=== PATIENT | male | born 1960 | race Caucasian/White ===

== ENCOUNTER 2022-06-28 09:02 | Outpatient (CLI) | payer OTHER, SELFPAY ==
[2022-06-28 09:39] LABS: Hemoglobin A1C* 6.9 % (0-5.6)
[2022-06-28 15:02] LABS: Basophils Absolute Auto 0.07 K/uL (0.00-0.30); Basophils Percent Auto 1.2 % (0.0-3.0); Eosinophils Absolute Auto 0.07 K/uL (0.00-0.50); Eosinophils Percent Auto 1.2 % (0.0-7.0); Hematocrit 46.8 % (37.0-53.0); Hemoglobin* 16.2 gm/dL (13.5-17.5); Immature Granulocytes Abs Auto 0.01 K/uL (0.00-0.30); Immature Granulocytes Pct Auto 0.2 %; Lymphocytes Percent Auto 22.9 % (20-44); Mean Corpuscular HGB Conc 35 gm/dL (32-36); Mean Corpuscular Hemoglobin 31 pg (26-34); Mean Corpuscular Volume 89 fL (80-100); Monocytes Percent Auto 14.6 % (0.0-11.0); Neutrophils Absolute Auto 3.39 K/uL (1.7-7.0); Neutrophils Percent Auto 59.9 % (42.0-72.0); Platelet Count* 275 K/uL (140-440); RDW Coefficient of Variation % 11.6 % (11.5-15.5); Red Blood Count 5.29 m/uL (4.30-5.90); White Blood Count* 5.67 K/uL (4.50-11.00)
[2022-06-28 15:08] LABS: Slide Review Reflex No
[2022-06-28 15:13] LABS: Albumin* 4.7 g/dL (3.3-5.0); Chloride* 103 mmol/L (96-114)
[2022-06-28 15:15] LABS: Cholesterol* 118 mg/dL (90-199); Creatinine* 0.8 mg/dL (0.5-1.5); Estimated Glomerular Filt Rate 101 ml/min
[2022-06-28 15:16] LABS: Alanine Aminotransferase* 35 U/L (4-50); Alkaline Phosphatase* 82 U/L (40-150); Aspartate Amino Transferase* 33 U/L (12-35); Bilirubin Total* 1.2 mg/dL (0.1-1.5); Blood Urea Nitrogen* 25 mg/dL (7-30); Calcium* 9.9 mg/dL (8.4-10.6); Carbon Dioxide* 28 mmol/L (20-32); Glucose* 136 mg/dL (60-115); Total Protein* 7.2 g/dL (6.0-8.3); Triglycerides* 229 mg/dL (40-149)
[2022-06-28 15:17] LABS: HDL Cholesterol* 33 mg/dL (>=40); LDL Cholesterol Calculated 39 mg/dL (<100)
[2022-06-28 15:19] LABS: Potassium* 4.9 mmol/L (3.6-5.1); Sodium* 139 mmol/L (135-149)
[2022-06-28 15:41] LABS: PSA Screen* 1.23 ng/mL (0.10-4.00)
[2022-06-28 16:30] LABS: Creatinine Urine 190.2 mg/dL
[2022-06-28 16:43] LABS: Microalbumin Creatinine Ratio 10 mg/g (0-30); Microalbumin Urine 2 mg/dL
== END 2022-06-28 09:03 | disposition home or self-care (01) ==
PROVIDERS: PCP Nurse Practitioner Family; Visit Provider Nurse Practitioner Family
DX: Z00.00 Encounter for general adult medical examination without abnormal findings (principal); E11.9 Type 2 diabetes mellitus without complications; E78.5 Hyperlipidemia, unspecified; Z12.5 Encounter for screening for malignant neoplasm of prostate; Z13.0 Encounter for screening for diseases of the blood and blood-forming organs and certain disorders involving the immune mechanism; Z51.81 Encounter for therapeutic drug level monitoring
CPT/HCPCS: 80053; 80061; 82043; 82570; 83036; 84153; 85025

== ENCOUNTER 2023-07-30 08:28 | Outpatient (CLI) | payer BC, SELFPAY | END 2023-07-30 08:29 | disposition home or self-care (01) | PROVIDERS: PCP Nurse Practitioner Family; Visit Provider Nurse Practitioner Family | DX: E78.5 Hyperlipidemia, unspecified (principal); E11.9 Type 2 diabetes mellitus without complications; I10 Essential (primary) hypertension; Z12.5 Encounter for screening for malignant neoplasm of prostate | CPT/HCPCS: 80053; 80061; 82043; 82570; 84443; G0103 ==

== ENCOUNTER 2024-06-22 07:03 | Outpatient (CLI) | payer BC, SELFPAY ==
--- NOTE | 2024-06-22 07:15 | MR_ITS ---
[address] [address] Phone:?[phone] Fax:?[phone] Referring Physician Information: David Grande M.D. [address] [facility] [address] Phone:?[phone] Fax:?[phone] Patient:Jay Stout D.O.B:?1960 Sex:?Male Phone:?[phone] [facility] MRN:?[id number] Exam Date:?06/22/2024 EXAM: MRI of the LEFT SHOULDER, without contrast CLINICAL INFORMATION: Male, 64 years old, with left shoulder pain. INDICATION: Evaluate for osteoarthritis or rotator cuff tear. PRIOR SURGERY: None reported. PLAIN FILMS: Shoulder radiograph dated 06/15/2024. COMPARISONS: Left shoulder MRI dated 05/24/2016. TECHNICAL INFORMATION: Using a 1.5T MR scanner and a localizing surface coil: coronal obliques: PD, T2, STIR sagittal obliques: PD, T2 axials: PD, T2 SEDATION: None CONTRAST: None FINDINGS: Bones: Proximal humerus: No fracture or marrow edema/pathology. No humeral Hill-Sachs or reverse Hill-Sachs lesion/impaction or contusion. Glenoid: No fracture or marrow edema/pathology. No osseous Bankart lesion. Rotator cuff and muscles/tendons: Supraspinatus: No tendinopathy, tear or atrophy. Infraspinatus: No tendinopathy, tear or atrophy. Teres minor: No tendinopathy, tear or atrophy. Subscapularis: Mild tendinopathy of the superior distal subscapularis, without tendon tear or muscle atrophy. Deltoid: No strain or atrophy. Coracoacromial arch: Acromion morphology: The acromion has type II morphology. No discrete subacromial osseous spur or os acromiale. Acromiohumeral space: The acromiohumeral space measures 5.2 mm at its narrowest point (osseous distance). Coracohumeral space: The coracohumeral space is within normal limits. Acromioclavicular joint: Joint: Mild-moderate AC joint arthropathy, which effaces the underlying supraspinatus (coronal T2 series 7 image 12 and sagittal T2 series 9 image 14). Ligaments: Coracoclavicular ligaments are intact. Bursae: Subacromial-subdeltoid: No convincing subacromial bursal thickening/bursitis. Subcoracoid: No convincing subcoracoid bursal thickening/bursitis. Biceps tendon: The long head of the biceps tendon is present within the bicipital groove. The intra-articular and extra-articular segments are intact without tendinosis, tenosynovitis, or displacement. Glenohumeral joint: Effusion/cyst: Small glenohumeral joint effusion. Articular cartilage: Humeral head: Moderate-marked thinning of the humeral head articular cartilage, with moderate inferomedial marginal osteophytosis. Glenoid: Moderate-marked thinning of the glenoid articular cartilage, with mild/moderate anterior and posterior marginal osteophytosis. Loose bodies: No discrete intra-articular body within the joint. Labrum:?Circumferential degeneration and tearing of the labrum, which is of doubtful clinical significance. Inferior glenohumeral ligament/axillary pouch:?Intact. The axillary pouch is normal in thickness and signal. No evidence of adhesive capsulitis or capsular injury. IMPRESSION: 1. Moderate-advanced osteoarthritis of the glenohumeral joint with a small joint effusion. 2. Mild subscapularis tendinopathy, without tear. 3. Mild narrowing of the acromiohumeral space with mild-moderate AC joint arthropathy, which effaces the underlying cervicitis. However, there is no subacromial-subdeltoid bursitis. 4. Circumferential degeneration and tearing of the labrum, which is of doubtful clinical significance. 5. No tendinopathy, displacement, or tear of the biceps long head tendon. BC Electronically signed on 06/22/2024 11:11:00 AM by Malcolm Alberto M.D.
== END 2024-06-22 07:04 | disposition home or self-care (01) ==
LOC: MRI 07:04
PROVIDERS: PCP Nurse Practitioner Family; Visit Provider Orthopaedic Surgery
DX: M19.012 Primary osteoarthritis, left shoulder (principal); M25.412 Effusion, left shoulder
CPT/HCPCS: 73221

== ENCOUNTER 2024-07-14 08:50 | Outpatient (CLI) | payer BC, SELFPAY | END 2024-07-14 08:51 | disposition home or self-care (01) | PROVIDERS: PCP Nurse Practitioner Family; Visit Provider Nurse Practitioner Family | DX: I10 Essential (primary) hypertension (principal) | CPT/HCPCS: 80053; 85025 ==

== ENCOUNTER 2024-07-27 06:00 | Day surgery (SDC) | payer BC, SELFPAY ==
[2024-07-27] VITALS (17 sets, daily range): BP systolic 92–154; BP diastolic 58–106; PULSE 90–100; RESP 14–16; TEMP 36.1–36.6; O2SAT 91–95; BMI 32.0
[2024-07-27] MEDS: ACETAMINOPHEN 500 MG TABLET 1000 MG PO (06:20)
[2024-07-27] MEDS: CELECOXIB 200 MG CAPSULE PO (06:20)
[2024-07-27] MEDS: OXYCODONE (CR) 10 MG TAB.ER.12H PO (06:20)
[2024-07-27] MEDS: SODIUM CHLORIDE 0.9 % (FLUSH) 10 ML SYRINGE IVF (06:42)
[2024-07-27] MEDS: 0.9 % SODIUM CHLORIDE 500 ML 500 ML 100 ML IV (06:43)
[2024-07-27] MEDS: fentaNYL 100 MCG/2 ML inj IVP (07:20)
[2024-07-27] MEDS: MIDAZOLAM HCL 1 MG/ML inj IVP (07:20)
--- NOTE | 2024-07-27 07:31 | SUR.PREOP ---
TIME?OUT:?719 PT/caleb esparza RN/marshall germain CRNA/ RONAL abbasi?VERIFICATION?OF?SURGICAL?SITE,?PROCEDURE,?AND?CONSENT OBTAINED?PRIOR?TO?INVASIVE?PROCEDURE.
--- NOTE | 2024-07-27 07:48 | W.PM.NB ---
Nerve Block Nerve Block Time Seen by Provider: 07:20 Date Seen: 07/27/24 Type of block requested by surgeon for post-operative analgesia: supraclavicular Side: left Time out performed: Yes Verification of patient name: Yes Verification of date of : Yes Site marking: site marked Name of person performing procedure: [place] Continuous monitoring Was continuous monitoring of O2 sat, B/P, quality assurance monitor body, recorded every 15 minutes?: Yes Procedure Checklist: sterile prep Ultrasound guided. Images saved: Yes Medications given in 5ml increments after negative aspiration: Ropivicaine %: 0.5 mL: 20 Needle gauge: 22 Decadron (mg): 10 Precedex (mcg): 20 Patient tolerated procedure well: Yes Block Charges Block Charge (with Pro Fee): Brachial Plexus Use of Ultrasound Machine for Block: Yes- US Guidance/pain block
[2024-07-27] MEDS: CEFAZOLIN 2 GM INJ IVP (07:59)
[2024-07-27] MEDS: TRANEXAMIC ACID 100 MG/ML INJ 1000 MG IV (07:59)
[2024-07-27] MEDS: LACTATED RINGERS 1000 ML 500 ML 75 ML IV (08:43)
--- NOTE | 2024-07-27 09:48 | CRLHL7_ITS ---
For Patients: As a result of the Cures Act, medical imaging exams and procedure reports are released immediately into your electronic medical record. You may view this report before your referring provider. If you have questions, please contact your health care provider. Indication: Postop TSH Technique: Two views left shoulder, 3 images total Findings/Impression: Hardware from a left total shoulder arthroplasty is in satisfactory position. Bone alignment is normal. No sign of acute fracture. Postop changes are within normal limits. Dictated by Alessandro Alford MD @ 07/28/2024 10:36:44 AM (Electronically Signed)
--- NOTE | 2024-07-27 09:52 | P.ORPRC_ITS ---
Procedure Note Date of procedure: 07/27/24 Procedure: PREOPERATIVE DIAGNOSIS: End-stage left upper extremity glenohumeral joint osteoarthritis POSTOPERATIVE DIAGNOSIS: End-stage left upper extremity glenohumeral joint osteoarthritis NAME OF OPERATION: Left upper extremity total shoulder arthroplasty, biceps tenodesis SURGEON: David Grande MD PROCUREMENT ASSISTANT: SHARI Howe ANESTHESIA: General endotracheal ESTIMATED BLOOD LOSS: 50 mL COMPLICATIONS: None SPECIMENS: None DRAINS: None PREOPERATIVE ANTIBIOTICS: Ancef 2 grams IMPLANTS: 1. Tornier L40 pegged glenoid component 2. Tornier 5B humeral stem 3. 48 mm x 16 mm, high eccentric humeral head INDICATIONS: The patient is a 64-year-old with a longstanding history of severe, unrelenting left shoulder pain secondary to end-stage glenohumeral joint osteoarthritis. Despite appropriate nonoperative management, including activity modification, anti-inflammatories, [id number] pain medication, physical therapy, and injections they continue to have pain and disability. Operative intervention was offered. The risks, benefits and expected outcomes were discussed in detail. These included but were not limited to: Infection, bleeding, injury to blood vessel or nerve, venous thromboembolism. All questions were answered to their satisfaction. Use of an assistant signal maintainer was necessary throughout the case for patient positioning and safety, soft tissue retraction, and closure. PROCEDURE: General anesthesia was administered. The patient was placed in the lazy beach chair position on the operating room table. The left upper extremity was prepped and draped in the usual sterile fashion. A standard deltopectoral incision was made. Subcutaneous dissection was taken with electrocautery to the deltopectoral interval. The cephalic vein was mobilized, lateral branches were cauterized. We bluntly entered the deltopectoral interval. We freed up the deltoid. The upper 1/3 of the insertion of the pectoralis was divided with cautery. The static retractor was placed. The clavipectoral fascia and CA ligament were divided. The circumflex vessels were controlled with electrocautery. The biceps was dissected out of the bicipital groove, was tagged with a #2 FiberWire suture and divided proximally. A FiberWire suture was placed in the subscapularis. The subscap was subperiosteally elevated off of the lesser tuberosity. The humeral head was delivered into the wound. The intramedullary humeral cutting guide was placed. We made the cut at the anatomic neck, in 20? of retroversion. Humeral sounds were used. Broaches were used until rotational stability was achieved. The cut protector was placed. Attention was then turned to the glenoid. Hohmann retractors were placed posteriorly. The labrum and biceps stump were sharply debrided. The origin of the inferior glenohumeral ligaments were subperiosteally released off of the glenoid. The glenoid appeared to be a L 40. The drill guide was placed centrally. The guide pin was placed. The reamer was used to concentric bone. The central drill hole was made. The drill guide was placed and single superior and 2 inferior drill holes were made. The trial glenoid component was placed and was an excellent fit. The glenoid was irrigated with normal saline then thoroughly dried. Cement was placed in the superior and inferior drill holes. The L 40 pegged glenoid component was placed and was impacted. This was an excellent fit. Attention then returned to the humerus. The trial humeral head was placed. We reduced the shoulder and took it through a range of motion. It was found to be stable with appropriate soft tissue tension. Trial humeral components were removed. We placed 2 x #2 FiberWire sutures through the lesser tuberosity for subsequent subscap repair. The biceps was tenodesed in the groove with sutures placed through drill holes, into the canal. We assembled the humeral component on the back table and impacted it into the canal. This had excellent purchase. The shoulder was reduced and was found to have appropriate soft tissue tension. We did a 3 min dilute Betadine solution soak. We irrigated the wound with 3 L of normal saline via pulse lavage. We repaired the subscapularis to the lesser tuberosity with our previously placed FiberWire sutures. The rotator interval was repaired with a #2 FiberWire suture. The deltopectoral interval was loosely reapproximated with an 0 Vicryl in an interrupted [id number] fashion. Subcutaneous tissues were closed with the 2-0 Vicryl and a running 3-0 Monocryl suture. The skin was sealed with glue. A dry dressing and sling were applied Sponge and needle counts were correct x2. The patient tolerated the procedure well, there were no apparent complications. They were awakened and extubated in the operating room, taken to the postanesthesia care unit in satisfactory condition. PLAN: The patient will be mobilized with physical therapy. The sling will be used for 6 weeks postoperatively. Active range of motion in forward flexion and abduction as tolerates. No external rotation greater than 0? for 6 weeks postoperatively. They will to be discharged to home once medically appropriate.
--- NOTE | 2024-07-27 10:24 | W.ANESCHARGE ---
Anesthesia Charges Start Date/Time Anesthesia Start Date: 07/27/24 Anesthesia Start Time: 07:27 Stop Date/Time Anesthesia Stop Date: 07/27/24 Anesthesia Stop Time: 10:23
== END 2024-07-27 14:22 | disposition home or self-care (01) ==
LOC: OR 06:02
PROVIDERS: PCP Nurse Practitioner Family; Visit Provider Orthopaedic Surgery
PROC: 0RRJ0JZ Replacement of Right Shoulder Joint with Synthetic Substitute, Open Approach (ICD-10-PCS; CPT 23472; principal; 2024-07-27 07:15)
DX: M19.012 Primary osteoarthritis, left shoulder (principal); G89.18 Other acute postprocedural pain; E11.9 Type 2 diabetes mellitus without complications; I10 Essential (primary) hypertension; K21.9 Gastro-esophageal reflux disease without esophagitis; E78.5 Hyperlipidemia, unspecified
CPT/HCPCS: 23472; 23430; 01638; 64415; 73030; 76942; 82962; 97110; 97165; 97535; A9270; C1776; J0690; J1100; J2250; J2371; J2405; J2704; J2710; J2795; J3010; J7030; J7120; L3670

== ENCOUNTER 2024-10-23 07:51 | Outpatient (CLI) | payer BC, SELFPAY | END 2024-10-23 07:52 | disposition home or self-care (01) | PROVIDERS: PCP Nurse Practitioner Family; Visit Provider Nurse Practitioner Family | DX: E78.5 Hyperlipidemia, unspecified (principal); E11.65 Type 2 diabetes mellitus with hyperglycemia; Z79.84 Long term (current) use of oral hypoglycemic drugs; Z79.85 Long-term (current) use of injectable non-insulin antidiabetic drugs; Z12.5 Encounter for screening for malignant neoplasm of prostate; Z13.29 Encounter for screening for other suspected endocrine disorder | CPT/HCPCS: 80061; 82043; 82570; 82607; 84443; G0103 ==

== ENCOUNTER 2024-11-27 14:45 | Outpatient (RCR) | payer BC, SELFPAY ==
--- NOTE | 2024-07-14 17:46 | OT.OPOE ---
OT Outpatient Ortho Eval OT Outpatient Ortho Eval* Start: 07/14/24 14:56 Freq: Status: Active Protocol: Document 07/14/24 16:16 JLS (Rec: 07/14/24 17:44 JLS [id number]) E-signed By Emmie Phillip OTR/L, CLT OT OP Ortho Eval Details Complexity Complexity Low Insurance Information Insurance Information Blue [employer] Outpatient History/Precautions Current Condition/Medical Diagnosis Referring Provider Harjinder Medical Diagnoses M19.012 Osteoarthritis of left shoulder Treatment Diagnosis M25.512 Pain in left shoulder Date of Onset November 2023 Medical Conditions DM Medical/Functional History Medical History Reviewed Yes Prior Level of Function/Mobility Pt I with all ADLs/IADLs, 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 Elbow/Forearm Range of Motion and Strength Elbow/Forearm Range of Motion and WNL for strength and ROM Strength OT Objective Data Hand Hand Dominance Right OT Problems Problems Problems Decreased Strength,Decreased Range of Motion,Decreased Dexterity,Pain,Decreased Coordination,Lifting,Gripping, Pinching Other Problems Opening Containers,Dressing, Computer,Fasteners,Sleeping Patient Potential Excellent Assessment Assessment Assessment Pt is a 64 yr old male referred to outpatient occupational therapy for a Lt TSA pre-op. Pt is R hand dominant. Surgery is scheduled for 07/27/24. Pt will have assist from spouse the first week after surgery and then spouse will return to work FT. Pt lives in an accessible home and has a necessary DME/AE. Pt was educated on post op exercises, post surgical precautions, as well as hospital progression prior to DC. Pt was also educated on sleeping and positioning, one handed ADL techniques, DME recommendations, fall prevention, icing/polar care, and sling management. All questions were answered to Pt? s satisfaction. Occupational Therapy Treatment Plan - OP Potential Rehabilitation Potential Excellent Set Goals Goals Set with Patient Yes Goals Goals Within one visit the patient will.... 1. be educated on sling management, one handed ADL techniques. GOAL MET 2. be able to verbalize and demonstrate post op exercises. GOAL MET Treatment Plan Treatment Plan Evaluation,Self Care/Home Management,Education Expected Frequency 1x Week Expected Duration Comments one time OT eval and tx Home Program Home Program Home Program Initiated Certification Certification Statement I Certify That: Therapy Services Provided, Therapy Plan Established, Therapy Plan Reviewed Certification Information Clinic ID # [id number] Initial Certification Date 07/14/24 Recertification Due Date 10/12/24 Provider Signature Required Communication Only-No Signature Required Provider Signature Shows Agreement With POC & Medical Necessity Physician NPI Number Write NPI# Here Physician Comment/Change Comment or Changes
== END 2024-12-23 10:46 | disposition home or self-care (01) ==
PROVIDERS: PCP Nurse Practitioner Family; Visit Provider Orthopaedic Surgery
DX: M19.012 Primary osteoarthritis, left shoulder (principal); Z96.612 Presence of left artificial shoulder joint; Z51.89 Encounter for other specified aftercare
CPT/HCPCS: 97110; 97140; 97161; 97165; 97535